=== PATIENT | female | born 1995 | race African-American/Black ===

== ENCOUNTER 2019-07-25 01:42 | Observation (INO) | payer MEDICAID ==
[~2019-07-25] VITALS: Ht 165.1 cm; Wt 82.1 kg
[2019-07-25 01:48] VITALS: BP 120/72
[2019-07-25] MEDS ORDERED: LACTATED RINGER'S 1,000 ML IV ONE (02:35)
[2019-07-25] MEDS: TERBUTALINE SULFATE 1 MG/ML 1ML VIAL SC SCH ×2 (02:54→04:19)
[2019-07-25] MEDS ORDERED: NIFEdipine 10 MG CAP ONE (05:59)
[2019-07-25] MEDS ORDERED: NIFEdipine 10 MG CAP PO ONE (06:00)
== END 2019-07-25 06:46 | disposition home or self-care (01) | DRG 566 ==
LOC: ER 01:42 → LDRP 01:53
PROVIDERS: ADMIT Specialist; ATTEND Specialist
DX: O23.43 Unspecified infection of urinary tract in pregnancy, third trimester (principal); O47.03 False labor before 37 completed weeks of gestation, third trimester; O99.113 Other diseases of the blood and blood-forming organs and certain disorders involving the immune mechanism complicating pregnancy, third trimester; Z3A.31 31 weeks gestation of pregnancy
CPT/HCPCS: 59025; 76815; 81002; 87210; 96372; 99284; G0378; J3105; 96365; 96366